=== PATIENT | female | born 1995 | race Caucasian/White ===

== ENCOUNTER 2017-04-15 14:14 | Emergency (ER) | payer SELFPAY ==
[~2017-04-15] VITALS: Ht 175.3 cm; Wt 109.1 kg
[2017-04-15 14:18] VITALS: BP 133/82; TEMP 98.2
[2017-04-15] MEDS ORDERED: DEPO-PROVER150 MG/M1 IM (14:35)
[2017-04-15] MEDS ORDERED: BACTRIM DS 8001 TAB PO (14:35)
[2017-04-15 15:25] LABS: PH 6 (5-8); SQUAMOUS EPITHELIAL 0-2 /hpf; URINE APPEARANCE Hazy; URINE BACTERIA None Seen /hpf; URINE BILIRUBIN Negative (NEGATIVE); URINE BLOOD 2+ (NEGATIVE); URINE COLOR Yellow; URINE GLUCOSE Negative (NEGATIVE); URINE KETONE Negative (NEGATIVE); URINE RBC >50 /hpf; URINE WBC >50 /hpf
[2017-04-15] MEDS ORDERED: DIFLUCAN 100MG100 MG PO (16:07)
[2017-04-15] MEDS ORDERED: FLAGYL500 MG PO (16:07)
[2017-04-15] MEDS ORDERED: DOXYCYCLINE 10100 MG PO (16:07)
[2017-04-15 16:46] VITALS: PULSE 80
[2017-04-15 16:56] LABS: CHLAMYDIA/TRACH by PCR Female DETECTED; NEISSERIA GON by PCR Female DETECTED
== END 2017-04-15 16:47 | disposition home or self-care (01) ==
LOC: COL.ER 14:14
PROVIDERS: Nurse Practitioner
DX: N39.0 Urinary tract infection, site not specified (principal); N76.0 Acute vaginitis; A59.01 Trichomonal vulvovaginitis; F17.210 Nicotine dependence, cigarettes, uncomplicated
CPT/HCPCS: J0696

== ENCOUNTER 2017-04-21 19:23 | Emergency (ER) | payer SELFPAY ==
[~2017-04-21] VITALS: Ht 175.3 cm; Wt 107.3 kg
[~2017-04-21 19:23] MED LIST: BACTRIM DS 8001 TAB PO; DEPO-PROVER150 MG/M1 IM; DIFLUCAN 100MG100 MG PO; DOXYCYCLINE 10100 MG PO; FLAGYL500 MG PO
[2017-04-21 19:28] VITALS: BP 120/73; PULSE 81; TEMP 98.4
[2017-04-21 19:53] LABS: COLLECTION METHOD CLEAN CATCH
[2017-04-21 20:01] LABS: MUCOUS Present /lpf; PH 7 (5-8); SQUAMOUS EPITHELIAL 0-2 /hpf; URINE APPEARANCE Clear; URINE BACTERIA None Seen /hpf; URINE BILIRUBIN Negative (NEGATIVE); URINE BLOOD 2+ (NEGATIVE); URINE COLOR Yellow; URINE GLUCOSE Negative (NEGATIVE); URINE KETONE Negative (NEGATIVE); URINE LEUKOCYTE ESTERASE Trace (NEGATIVE); URINE PROTEIN(semi-quant) Negative (NEGATIVE); URINE UROBILINOGEN Negative (NEGATIVE); URINE WBC 0-2 /hpf
[2017-04-21] MEDS ORDERED: MACROBID 1100 MG/CAP PO (20:08)
== END 2017-04-21 20:17 | disposition home or self-care (01) ==
LOC: COL.ER 19:23
PROVIDERS: Family Medicine
DX: N39.0 Urinary tract infection, site not specified (principal); F17.210 Nicotine dependence, cigarettes, uncomplicated

== ENCOUNTER 2017-07-14 10:31 | Emergency (ER) | payer SELFPAY ==
[~2017-07-14] VITALS: Ht 175.3 cm; Wt 109.1 kg
[~2017-07-14 10:31] MED LIST changes: +MACROBID 1100 MG/CAP PO
[2017-07-14 10:33] VITALS: BP 130/81
[2017-07-14 11:38] LABS: INFLUENZA A NEGATIVE; INFLUENZA B NEGATIVE
[2017-07-14] MEDS ORDERED: ZOFRAN ODT4 MG PO (12:16)
[2017-07-14 12:27] VITALS: PULSE 88; TEMP 98.5
== END 2017-07-14 12:27 | disposition home or self-care (01) ==
LOC: COL.ER 10:31
PROVIDERS: Physician Assistant
DX: B34.9 Viral infection, unspecified (principal); F17.200 Nicotine dependence, unspecified, uncomplicated; Z88.0 Allergy status to penicillin

== ENCOUNTER 2017-08-28 13:19 | Emergency (ER) | payer SELFPAY ==
[~2017-08-28] VITALS: Ht 175.3 cm; Wt 109.1 kg
[~2017-08-28 13:19] MED LIST changes: +ZOFRAN ODT4 MG PO
[2017-08-28 13:21] VITALS: BP 132/70; PULSE 83; TEMP 98.1
[2017-08-28] MEDS ORDERED: OPCON-A 0.027%-15 M1 OP (13:32)
[2017-08-28] MEDS ORDERED: REFRESH 1 ML1 ML OP (13:33)
== END 2017-08-28 14:09 | disposition home or self-care (01) ==
LOC: COL.ER 13:19
DX: H11.31 Conjunctival hemorrhage, right eye (principal); H10.89 Other conjunctivitis; Z88.0 Allergy status to penicillin